=== PATIENT | female | born 1995 | race Two or more races ===

== ENCOUNTER → 2022-09-09 | Outpatient (REF) | payer OTHER | LOC: M PLALAB 10:31 | PROVIDERS: ATTEND Advanced Practice Midwife | DX: Z53.9 Procedure and treatment not carried out, unspecified reason (principal) ==

== ENCOUNTER → 2022-09-17 | Outpatient (CLI) | payer OTHER ==
[2022-09-17 14:44] LABS: HEMATOCRIT 42.4 % (36.0-47.0); HEMOGLOBIN 14.4 g/dl (12.0-15.5); MEAN CORPUSCULAR HEMOGLOBIN 30.3 pg (27.0-33.0); MEAN CORPUSCULAR VOLUME 89.1 fl (80.0-96.0); PLATELET COUNT, AUTOMATED 203 10^3/uL (150-450); RED BLOOD COUNT 4.76 10^6/uL (4.00-5.40); WHITE BLOOD COUNT 8.6 10^3/uL (4.0-10.0)
[2022-09-17 16:03] LABS: HIV 1&2 SCREEN NEGATIVE (NEGATIVE)
[2022-09-17 16:11] LABS: HEPATITIS C VIRUS ABY INDEX 0.15 INDEX (<0.8)
[2022-09-17 16:25] LABS: GC DNA AMPLIFICATION NEGATIVE (NEGATIVE)
== END ==
LOC: M PLALAB 09:45
PROVIDERS: ATTEND Advanced Practice Midwife
DX: Z34.01 Encounter for supervision of normal first pregnancy, first trimester (principal)

== ENCOUNTER → 2022-12-18 | Outpatient (CLI) | payer OTHER | LOC: M WHC 14:31 | PROVIDERS: ATTEND Specialist | DX: Z34.02 Encounter for supervision of normal first pregnancy, second trimester (principal); Z3A.25 25 weeks gestation of pregnancy ==

== ENCOUNTER → 2022-12-31 | Outpatient (CLI) | payer OTHER ==
[2022-12-31 15:43] LABS: HEMATOCRIT 40.4 % (36.0-47.0); HEMOGLOBIN 13.6 g/dl (12.0-15.5); MEAN CORPUSCULAR HEMOGLOBIN 30.4 pg (27.0-33.0); MEAN CORPUSCULAR HGB CONC 33.7 g/dl (32.0-36.5); MEAN CORPUSCULAR VOLUME 90.2 fl (80.0-96.0); PLATELET COUNT, AUTOMATED 209 10^3/uL (150-450); RED BLOOD COUNT 4.48 10^6/uL (4.00-5.40); WHITE BLOOD COUNT 10.6 10^3/uL (4.0-10.0)
[2022-12-31 17:52] LABS: CHLAMYDIA DNA AMPLIFICATION NEGATIVE (NEGATIVE); GC DNA AMPLIFICATION NEGATIVE (NEGATIVE)
== END ==
LOC: M PLALAB 11:44
PROVIDERS: ATTEND Specialist
DX: O26.842 Uterine size-date discrepancy, second trimester (principal); O99.212 Obesity complicating pregnancy, second trimester; E66.09 Other obesity due to excess calories; Z3A.27 27 weeks gestation of pregnancy; Z23 Encounter for immunization
CPT/HCPCS: 36415; 82950; 85027; 86850; 86900; 86901; 87810; 87850; 90471; 90472; 90686; 90715; G0463; J2790

== ENCOUNTER → 2023-02-23 | Outpatient (CLI) | payer OTHER | LOC: M WHC 07:29 | PROVIDERS: ATTEND Advanced Practice Midwife | DX: O99.213 Obesity complicating pregnancy, third trimester (principal); E66.9 Obesity, unspecified; Z3A.34 34 weeks gestation of pregnancy ==

== ENCOUNTER → 2023-03-05 | Outpatient (REF) | payer OTHER | LOC: M SFHCWAGY 17:09 | PROVIDERS: ATTEND Obstetrics & Gynecology | DX: O26.849 Uterine size-date discrepancy, unspecified trimester (principal) | CPT/HCPCS: 76815; 87081; 87186; G0463 ==

== ENCOUNTER → 2023-03-12 | Outpatient (CLI) | payer OTHER | LOC: M WHC 15:01 | PROVIDERS: ATTEND Obstetrics & Gynecology | DX: O26.843 Uterine size-date discrepancy, third trimester (principal); Z3A.37 37 weeks gestation of pregnancy; O36.63X0 Maternal care for excessive fetal growth, third trimester, not applicable or unspecified ==

== ENCOUNTER → 2023-03-24 | Outpatient (CLI) | payer OTHER | LOC: M WHC 07:05 | PROVIDERS: ATTEND Obstetrics & Gynecology | DX: O36.63X3 Maternal care for excessive fetal growth, third trimester, fetus 3 (principal); Z3A.38 38 weeks gestation of pregnancy ==

== ENCOUNTER → 2023-04-02 | Outpatient (CLI) | payer OTHER ==
[2023-04-02 16:06] LABS: HEMATOCRIT 38.1 % (36.0-47.0); HEMOGLOBIN 12.8 g/dl (12.0-15.5); MEAN CORPUSCULAR HEMOGLOBIN 30.2 pg (27.0-33.0); MEAN CORPUSCULAR HGB CONC 33.6 g/dl (32.0-36.5); MEAN CORPUSCULAR VOLUME 89.9 fl (80.0-96.0); PLATELET COUNT, AUTOMATED 201 10^3/uL (150-450); RED BLOOD COUNT 4.24 10^6/uL (4.00-5.40); WHITE BLOOD COUNT 12.2 10^3/uL (4.0-10.0)
[2023-04-02 16:26] LABS: TOTAL PROTEIN,RANDOM URINE 19.2 MG/DL (0.0-14.0)
[2023-04-02 16:27] LABS: URIC ACID 5.3 MG/DL (3.1-7.8)
[2023-04-02 16:29] LABS: LDH LACTATE DEHYDROGENASE 142 U/L (120-246)
[2023-04-02 16:30] LABS: ALT/SGPT 10 U/L (7.0-40); AST/SGOT 13 U/L (<34); BILIRUBIN,TOTAL 0.3 MG/DL (0.3-1.2); GLOMERULAR FILTRATION RATE > 60.0 (>60)
[2023-04-02 16:31] LABS: CREATININE,RANDOM URINE 106.5 MG/DL
== END ==
LOC: M PLALAB 14:15
PROVIDERS: ATTEND Advanced Practice Midwife
DX: Z34.03 Encounter for supervision of normal first pregnancy, third trimester (principal)

== ENCOUNTER 2023-04-08 07:20 | Inpatient (IN) | payer OTHER ==
[2023-04-08] VITALS (15 sets, daily range): BP systolic 118–173; BP diastolic 56–99
[~2023-04-08] VITALS: Ht 177.8 cm; Wt 140.9 kg
[2023-04-08] MEDS ORDERED: TUMS500C PO (07:46)
[2023-04-08] MEDS ORDERED: PRENTAB9 PO (07:46)
[2023-04-08] MEDS ORDERED: PENICILLIN G POTASSIUM 5 MU IV 5 MU in D5W MINI-BAG PLUS 100 ML IV STA (08:19)
[2023-04-08] MEDS ORDERED: LIDOCAINE 1% MDV 20ML VIAL INFIL PRN (08:20)
[2023-04-08] MEDS ORDERED: OXYTOCIN DRIP 30 UNITS in IV 1 EA IV PRN (08:20)
[2023-04-08] MEDS ORDERED: TRANEXAMIC ACID INJection 1,000 MG in NS 100 ML IV PRN (08:20)
[2023-04-08] MEDS ORDERED: OXYTOCIN INJ 10UNITS/ML 1ML VIAL IM PRN (08:20)
[2023-04-08] MEDS ORDERED: CARBOPROST TROMETHAMINE 250 MCG/ML AMP IM PRN (08:20)
[2023-04-08] MEDS: miSOPROStol 50MCG 1/2 TABLET PO SCH (08:53)
[2023-04-08 09:16] LABS: HEMATOCRIT 37.4 % (36.0-47.0); HEMOGLOBIN 12.6 g/dl (12.0-15.5); MEAN CORPUSCULAR HEMOGLOBIN 30.1 pg (27.0-33.0); MEAN CORPUSCULAR HGB CONC 33.7 g/dl (32.0-36.5); MEAN CORPUSCULAR VOLUME 89.5 fl (80.0-96.0); PLATELET COUNT, AUTOMATED 192 10^3/uL (150-450); RED BLOOD COUNT 4.18 10^6/uL (4.00-5.40); WHITE BLOOD COUNT 13.3 10^3/uL (4.0-10.0)
[2023-04-08 09:22] LABS: TOTAL PROTEIN,RANDOM URINE 13.1 MG/DL (0.0-14.0)
[2023-04-08 09:25] LABS: URIC ACID 5.2 MG/DL (3.1-7.8)
[2023-04-08 09:27] LABS: CREATININE,RANDOM URINE 65.4 MG/DL; LDH LACTATE DEHYDROGENASE 153 U/L (120-246)
[2023-04-08 09:28] LABS: ALT/SGPT 12 U/L (7.0-40); AST/SGOT 14 U/L (<34); BILIRUBIN,TOTAL 0.4 MG/DL (0.3-1.2); CREATININE FOR GFR 0.49 MG/DL (0.55-1.30); GLOMERULAR FILTRATION RATE > 60.0 (>60)
[2023-04-08] MEDS ORDERED: PEN G POT 3,000,000 UNIT/50 ML 3,000,000 UNIT in IV 1 EA IV SCH (12:20)
[2023-04-08] MEDS ORDERED: HOME MED LIST COMPLETE! XX SCH (12:30)
[2023-04-09] VITALS (39 sets, daily range): BP systolic 93–149; BP diastolic 51–95
[2023-04-09] MEDS ORDERED: OXYTOCIN DRIP 30 UNITS in IV 1 EA IV SCH (01:10)
[2023-04-09] MEDS ORDERED: OXYTOCIN 30UNITS IN 0.9% NaCl 500ML IV BAG As Ordered ONE (01:26)
[2023-04-09] MEDS ORDERED: PENICILLIN POTASSIUM As Ordered ONE (02:11)
[2023-04-09] MEDS: PENICILLIN G POTASSIUM 5 MU IV 5 MU in D5W MINI-BAG PLUS 100 ML IV STA (02:20)
[2023-04-09] MEDS: PEN G POT 3,000,000 UNIT/50 ML 3,000,000 UNIT in IV 1 EA IV SCH (06:47)
[2023-04-09] MEDS: LR 1,000 ML IV SCH (06:47)
[2023-04-09] MEDS ORDERED: NALOXONE INJ 0.4MG/1ML VIAL IV PRN (07:25)
[2023-04-09] MEDS ORDERED: ONDANSETRON 4MG 2ML VIAL IV PRN (07:25)
[2023-04-09] MEDS ORDERED: ePHEDrine SULFATE 25 MG/5 ML(5MG/ML) SYRINGE IVP PRN (07:25)
[2023-04-09] MEDS ORDERED: LR 500 ML IV PRN (07:25)
[2023-04-09] MEDS ORDERED: EPIDURAL/PCA KEYS XX PRN (07:25)
[2023-04-09] MEDS ORDERED: diphenhydrAMINE 50MG/ML VIAL IV PRN (07:25)
[2023-04-09] MEDS: FENTANYL/ROPIVACAINE/NACL BAG 100 ML EPIDURAL SCH (08:06)
[2023-04-09] MEDS ORDERED: METHYLERGONOVINE MALEATE 0.2 MG TAB PO PRN (16:55)
[2023-04-09] MEDS ORDERED: RHOGAM 300MCG (1500IU) INJ IM SCH (17:00)
[2023-04-09] MEDS: ACETAMINOPHEN 500 MG TAB PO PRN (17:51)
[2023-04-09] MEDS: DIBUCAINE 1% OINTMENT 30GM TOP PRN (17:51)
[2023-04-09] MEDS: IBUPROFEN 600MG TAB PO PRN (22:43)
[2023-04-10 06:00] VITALS: BP 132/66; O2SAT 99
[2023-04-10 07:33] LABS: HEMATOCRIT 32.5 % (36.0-47.0); HEMOGLOBIN 10.8 g/dl (12.0-15.5); MEAN CORPUSCULAR HEMOGLOBIN 30.3 pg (27.0-33.0); MEAN CORPUSCULAR HGB CONC 33.2 g/dl (32.0-36.5); MEAN CORPUSCULAR VOLUME 91.3 fl (80.0-96.0); PLATELET COUNT, AUTOMATED 171 10^3/uL (150-450); RED BLOOD COUNT 3.56 10^6/uL (4.00-5.40); WHITE BLOOD COUNT 13.7 10^3/uL (4.0-10.0)
[2023-04-10] MEDS: PRENATAL VITAMINS CHEWABLE TABLET PO SCH (09:00)
[2023-04-10] MEDS: DOCUSATE SODIUM 100MG CAPSULE PO PRN (11:52)
[2023-04-10 18:00] VITALS: BP 144/83; O2SAT 99
[2023-04-11 06:00] VITALS: BP 145/74; O2SAT 98
[2023-04-11] MEDS: MEASLES,MUMPS,RUBELLA VACCINE INJ (MMR-II) SC.IMMUN ONE (09:00)
== END 2023-04-11 12:12 | disposition home or self-care (01) | DRG 807 ==
LOC: M LDI 07:20 → M OBS 04-09 19:12
PROVIDERS: ADMIT Advanced Practice Midwife; ATTEND Obstetrics & Gynecology
PROC: 3E0P7GC Introduction of Other Therapeutic Substance into Female Reproductive, Via Natural or Artificial Opening (ICD-10-PCS; 2023-04-08)
PROC: 10E0XZZ Delivery of Products of Conception, External Approach (ICD-10-PCS; principal; 2023-04-09)
PROC: 0HQ9XZZ Repair Perineum Skin, External Approach (ICD-10-PCS; 2023-04-09)
PROC: 10907ZC Drainage of Amniotic Fluid, Therapeutic from Products of Conception, Via Natural or Artificial Opening (ICD-10-PCS; 2023-04-09)
DX: O48.0 Post-term pregnancy (principal); Z37.0 Single live birth; O13.4 Gestational [pregnancy-induced] hypertension without significant proteinuria, complicating childbirth; O99.824 Streptococcus B carrier state complicating childbirth; O70.0 First degree perineal laceration during delivery; Z3A.41 41 weeks gestation of pregnancy